=== PATIENT | male | born 1960 | race Caucasian/White ===

== ENCOUNTER 2016-07-02 00:22 | Emergency (ER) | payer BC ==
[2016-07-02 00:46] LABS: INFLUENZA A NEGATIVE (NEGATIVE); INFLUENZA B NEGATIVE (NEGATIVE)
[2016-07-02] MEDS ORDERED: 0.9 % SODIUM CHLORIDE 1,000 ML BAG IV ONE ×2 (00:58→02:24)
[2016-07-02] MEDS ORDERED: ONDANSETRON HCL IV 4 MG/2 ML VIAL IV ONE (00:58)
[2016-07-02 01:13] LABS: HEMATOCRIT 46.9 % (42.0-52.0); HEMOGLOBIN 16.7 gm/dl (14.0-18.0); MEAN CELL VOLUME 91.1 fl (81-97); MEAN CORPUSCULAR HEMOGLOBIN 32.4 pg (27-33); MEAN CORPUSCULAR HGB CONC 35.6 g/dl (32-36); MEAN PLATELET VOLUME 12.9 fl (7.4-10.4); PLATELET COUNT 100 K/uL (130-400); RED BLOOD COUNT 5.15 M/uL (4.40-5.70); RED CELL DISTRIBUTION WIDTH 13.3 % (11.5-14.5)
--- NOTE | 2016-07-02 01:19 | Emergency Department Record ---
History of Present Illness - General Chief complaint: Flu Like Symptoms Stated complaint: FLU LIKE SYMPTOMS Time Seen by Provider: 07/02/16 00:58 Source: Patient Mode of Arrival: Ambulatory Limitations: No limitations - History of Present Illness Initial comments: pt had a few bouts of vomiting earlier in the week and then has had multiple episodes a day for the last 3 days. pt feels like he is dehydrated. no other symptoms and no pain or fever Onset/Timin -: Days(s) Location: Generalized Severity scale (1-10): 6 Quality: Aching Consistency: Constant Improves with: None Worsens with: Exertion Associated Symptoms: Nausea/vomiting - Related Data Home Medications Medication Instructions Recorded Confirmed Last Taken Adalimumab [Humira] 1 mg SQ ASDIR 06/10/14 07/02/16 Unknown Alprazolam [Alprazolam] 0.5 mg PO BID 06/10/14 07/02/16 Unknown Atorvastatin Calcium [Lipitor] 1 tab PO DAILY 06/10/14 07/02/16 Unknown Celecoxib [Celebrex] 200 mg PO BID 06/10/14 07/02/16 Unknown Fenofibrate Nanocrystallized 135 mg PO DAILY 06/10/14 07/02/16 Unknown [Fenofibrate] Insulin Aspart [Novolog Flexpen] 1 unit SQ WMEALS PRN 06/10/14 07/02/16 07/02/16 Insulin Glargine,Hum.rec.anlog 46 unit SQ BID 06/10/14 07/02/16 07/02/16 [Lantus] Mirtazapine [Remeron] 15 mg PO QHS 06/10/14 07/02/16 Unknown Liraglutide [Victoza 3-Balaji] 1.2 mg SQ DAILY 07/02/16 07/02/16 Unknown Metoprolol Succinate [Toprol Xl] 25 mg PO DAILY 07/02/16 07/02/16 Unknown Previous Rx's Medication Instructions Recorded Ondansetron [Zofran Odt] 4 mg PO Q8H #10 tab.rapdis 07/02/16 Allergies Allergy/AdvReac Type Severity Reaction Status Date / Time No Known Drug Allergies Allergy Verified 06/11/14 00:58 Travel Screening - Travel/Exposure Within Last 30 Days Have you traveled within the last 30 days?: No - Travel Symptoms Symptom Screening: None Review of Systems Reviewed: No additional complaints except as noted below Constitutional: Reports: As per HPI. Denies: Chills, Fever, Malaise, Night sweats, Weakness, Weight change Eyes: Reports: As per HPI. Denies: Eye discharge, Eye pain, Photophobia, Vision change ENT: Reports: As per HPI. Denies: Congestion, Dental pain, Ear pain, Epistaxis , Hearing loss, Throat pain Respiratory: Reports: As per HPI. Denies: Cough, Dyspnea, Hemoptysis, Stridor, Wheezes Cardiovascular: Reports: As per HPI. Denies: Arrhythmia, Chest pain, Dyspnea on exertion, Edema, Murmurs, Orthopnea, Palpitations, Paroxysmal nocturnal dyspnea, Rheumatic Fever, Syncope Endocrine: Reports: As per HPI. Denies: Fatigue, Heat or cold intolerance, Polydipsia, Polyuria Gastrointestinal: Reports: As per HPI. Denies: Abdominal pain, Constipation, Diarrhea, Hematemesis, Hematochezia, Melena, Nausea, Vomiting Genitourinary: Reports: As per HPI. Denies: Dysuria, Frequency, Hematuria, Incontinence, Retention, Testicular pain, Testicular mass, Urgency Musculoskeletal: Reports: As per HPI. Denies: Arthralgia, Back pain, Gout, Joint swelling, Myalgia, Neck pain Skin: Reports: As per HPI. Denies: Bruising, Change in color, Change in hair/ nails, Lesions, Pruritus, Rash Neurological: Reports: As per HPI. Denies: Abnormal gait, Confusion, Headache, Numbness, Paresthesias, Seizure, Tingling, Tremors, Vertigo, Weakness Psychiatric: Reports: As per HPI. Denies: Anxiety, Auditory hallucinations, Depression, Homicidal thoughts, Suicidal thoughts, Visual hallucinations Hematological/Lymphatic: Reports: As per HPI. Denies: Anemia, Blood Clots, Easy bleeding, Easy bruising, Swollen glands Past Medical History - SOCIAL HISTORY Smoking Status: Current every day smoker - RESPIRATORY Hx Respiratory Disorders: Yes Hx Bronchitis: Yes Hx Pneumonia: Yes - CARDIOVASCULAR Hx Cardio Disorders: Yes Hx Abnormal EKG: Yes Hx Cardiac Cath: Yes Hx Chest Pain: Yes (occass. pt thinks its muskuloskelatal) Hx Heart Attack: Yes (2004) Hx Hypertension: Yes (on meds fair control goes up when in pain) Hx Coronary Artery Disease: Yes Hx Coronary Stent: Yes (2004) - NEURO Hx Neuro Disorders: Yes Hx Dizziness: Yes (hx vertigo x's 1) Hx Weakness: Yes (arms and legs) - GI Hx GI Disorders: Yes Hx Reflux: Yes - Hx Genitourinary Disorders: No - ENDOCRINE Hx Endocrine Disorders: Yes Hx Diabetes: Yes - MUSCULOSKELETAL Hx Musculoskeletal Disorders: Yes Hx Arthritis: Yes (ankylosing spondolytis) Hx Back Injury: Yes Hx Fibromyalgia: Yes - PSYCH Hx Psych Problems: Yes Hx Anxiety: Yes Comment:: OCD - HEMATOLOGY/ONCOLOGY Hx Hematology/Oncology Disorders: Yes Hx Blood Transfusions: Yes Family Medical History Any Significant Family History?: Yes Family Hx Comment (NOT TO BE USED IN PLACE OF ITEMS BELOW): RA, diabetes, heart problems, kidney stones. Physical Exam - General General Appearance: Alert, Oriented x3, Cooperative, Mild distress - Head Head exam: Normal inspection - Eye Eye exam: Normal appearance, PERRL, EOMI Pupils: Normal accommodation - ENT ENT exam: Normal exam, Mucous membranes dry, Normal external ear exam, Normal orophraynx Ear exam: Normal external inspection. negative: External canal tenderness Nasal Exam: Normal inspection. negative: Discharge, Sinus tenderness Mouth exam: Normal external inspection, Tongue normal Teeth exam: Normal inspection. negative: Dental caries Throat exam: Normal inspection. negative: Tonsillar erythema, Tonsillar exudate - Neck Neck exam: Normal inspection, Full ROM. negative: Tenderness - Respiratory Respiratory exam: Normal lung sounds bilaterally. negative: Respiratory distress - Cardiovascular Cardiovascular Exam: Normal rhythm, Normal heart sounds, Tachycardia - GI/Abdominal GI/Abdominal exam: Soft, Normal bowel sounds. negative: Tenderness - Rectal Rectal exam: Deferred - exam: Deferred - Extremities Extremities exam: Normal inspection, Full ROM, Normal capillary refill. negative: Tenderness - Back Back exam: Reports: Normal inspection, Full ROM. Denies: Muscle spasm, Rash noted, Tenderness - Neurological Neurological exam: Alert, CN II-XII intact, Normal gait, Oriented X3 - Psychiatric Psychiatric exam: Normal affect, Normal mood - Skin Skin exam: Dry, Intact, Normal color, Warm Course Vital Signs 07/02/16 00:32 Temperature 98.5 F Pulse Rate 128 H Respiratory 18 Rate Blood Pressure 102/84 Pulse Ox 96 - Reevaluation(s) Reevaluation #1: 07/02/16 03:31 pt feels much better Medical Decision Making - Lab Data Result diagrams: 07/02/16 01:07 07/02/16 01:07 Lab Results 07/02/16 07/02/16 Range/Units 00:28 01:07 WBC 8.0 (4.2-12.2) K/uL RBC 5.15 (4.40-5.70) M/uL Hgb 16.7 (14.0-18.0) gm/dl Hct 46.9 (42.0-52.0) % MCV 91.1 (81-97) fl MCH 32.4 (27-33) pg MCHC 35.6 (32-36) g/dl RDW 13.3 (11.5-14.5) % Plt Count 100 L (130-400) K/uL MPV 12.9 H (7.4-10.4) fl Eosinophils % Not Reportable Basophils % Not Reportable Influenza Type A Ag Negative (NEGATIVE) Influenza Type B Ag Negative (NEGATIVE) Disposition Disposition: Discharge Clinical Impression: Rotavirus enteritis, IDDM (insulin dependent diabetes mellitus) Disposition: Home, Self-Care Condition: (1) Good Instructions: Rotavirus Infection (ED) Additional Instructions: follow up with family doctor. return sooner if worse. push fluids. monitor glucose closely Prescriptions: Ondansetron [Zofran Odt] 4 mg PO Q8H #10 tab.rapdis Forms: Patient Portal Access
[2016-07-02 01:23] LABS: ANION GAP 8.6 (7-16); BLOOD UREA NITROGEN 15 mg/dL (9-20); CARBON DIOXIDE 21.4 mmol/L (22-30); EST GLOMERULAR FILTRATION RATE > 60 ml/min; GLUCOSE,RANDOM 268 mg/dL (70-110)
[2016-07-02 02:37] LABS: URINE APPEARANCE CLEAR; URINE BILIRUBIN NEGATIVE (NEGATIVE); URINE BLOOD TRACE-I (NEGATIVE); URINE COLOR YELLOW; URINE KETONE TRACE (NEGATIVE); URINE LEUKOCYTE ESTERASE NEGATIVE (NEGATIVE); URINE NITRITE NEGATIVE (NEGATIVE); URINE PROTEIN NEGATIVE (NEGATIVE); URINE UROBILINOGEN 0.2 E.U./dL (0.20 - 1.00)
[2016-07-02 02:49] LABS: URINE GLUCOSE (UA) >=1000 mg/dL (NEGATIVE)
[2016-07-02 02:50] LABS: URINE BACTERIA NONE SEEN; URINE EPITHELIAL CELLS 0 - 2 (FEW); URINE WBC 0 - 2 (0-2/hpf)
[2016-07-02 02:57] LABS: CRYPTOSPORIDIUM PARVUM ANTIGEN NOT DETECTED (NOT DETECT); GIARDIA LAMBLIA ANTIGEN NOT DETECTED (NOT DETECT)
[2016-07-02 02:58] LABS: ROTOVIRUS DETECTED
[2016-07-02 03:13] LABS: ACETONE,SERUM POSITIVE (NEGATIVE)
[2016-07-02] MEDS ORDERED: ONDANSETRON 4 MG ODT TABLET SL ONE (03:33)
== END 2016-07-02 03:47 | disposition home or self-care (01) ==
LOC: ER 00:22
DX: A08.0 Rotaviral enteritis (principal); E11.9 Type 2 diabetes mellitus without complications; Z79.4 Long term (current) use of insulin
CPT/HCPCS: 99284 ×2; 96374; 96361; 82800; 87329; 80048; 81001; 82009; 89055; 87425; 87427; 82272; 87400; 85027; J2405; J7030

== ENCOUNTER 2017-03-22 18:55 | Emergency (ER) | payer BC ==
--- NOTE | 2017-03-22 19:13 | Emergency Department Record ---
History of Present Illness - General Chief complaint: Weakness Stated complaint: TROUBLE WALKING,WEAKNESS,HIGH BLOOD SUGAR Time Seen by Provider: 03/22/17 19:08 Source: Patient Mode of Arrival: Wheelchair Limitations: No limitations - History of Present Illness Initial comments: 56 yo male presents to ED for evaluation of "all over body weakness" that began earlier today. Patient reports that he was fasting for a cortisone injection to the neck earlier today, blood sugar was 64 at that time however this afternoon, patient's glucose increased 300's with generalized weakness symptoms. Patient denies focal weakness on examination, denies fever, chills, or recent illness. Patient is concerned about possible dehydration. MD Complaint: Generalized weakness Onset/Timin -: Days(s) Location: Generalized Severity: Moderate Consistency: Constant Improves with: None Worsens with: None Context: New medication Associated Symptoms: Denies other symptoms - Eben Coma Scale Eye Response: (4) Open spontaneously Motor Response: (6) Obeys commands Verbal Response: (5) Oriented [place] Total: 15 - Related Data Previous Rx's Medication Instructions Recorded Ondansetron [Zofran Odt] 4 mg PO Q8H #10 tab.rapdis 07/02/16 Allergies Allergy/AdvReac Type Severity Reaction Status Date / Time No Known Drug Allergies Allergy Verified 06/11/14 00:58 Review of Systems Constitutional: Reports: Weakness ("all over"). Denies: Chills, Fever, Malaise , Night sweats Eyes: Denies: Eye discharge, Eye pain ENT: Denies: Congestion, Ear pain, Epistaxis Respiratory: Denies: Cough, Dyspnea Cardiovascular: Denies: Chest pain, Dyspnea on exertion Endocrine: Denies: Fatigue, Heat or cold intolerance Gastrointestinal: Reports: Abdominal pain ("for months"). Denies: Constipation , Nausea, Vomiting Genitourinary: Denies: Testicular pain, Testicular mass Musculoskeletal: Denies: Arthralgia, Back pain, Gout, Joint swelling Skin: Denies: Bruising, Change in color Neurological: Denies: Confusion, Headache, Numbness, Seizure, Tingling, Weakness Psychiatric: Denies: Anxiety Hematological/Lymphatic: Denies: Anemia, Blood Clots Past Medical History - SOCIAL HISTORY Smoking Status: Current every day smoker - RESPIRATORY Hx Respiratory Disorders: Yes Hx Bronchitis: Yes Hx Pneumonia: Yes - CARDIOVASCULAR Hx Cardio Disorders: Yes Hx Abnormal EKG: Yes Hx Cardiac Cath: Yes Hx Chest Pain: Yes (occass. pt thinks its muskuloskelatal) Hx Heart Attack: Yes (2004) Hx Hypertension: Yes (on meds fair control goes up when in pain) Hx Coronary Artery Disease: Yes Hx Coronary Stent: Yes (2004) - NEURO Hx Neuro Disorders: Yes Hx Dizziness: Yes (hx vertigo x's 1) Hx Weakness: Yes (arms and legs) - GI Hx GI Disorders: Yes Hx Reflux: Yes - Hx Genitourinary Disorders: No - ENDOCRINE Hx Endocrine Disorders: Yes Hx Diabetes: Yes - MUSCULOSKELETAL Hx Musculoskeletal Disorders: Yes Hx Arthritis: Yes (ankylosing spondolytis) Hx Back Injury: Yes Hx Fibromyalgia: Yes - PSYCH Hx Psych Problems: Yes Hx Anxiety: Yes Comment:: OCD - HEMATOLOGY/ONCOLOGY Hx Hematology/Oncology Disorders: Yes Hx Blood Transfusions: Yes Family Medical History Family Hx Comment (NOT TO BE USED IN PLACE OF ITEMS BELOW): RA, diabetes, heart problems, kidney stones. Physical Exam - General General Appearance: Alert, Oriented x3, Cooperative, Moderate distress Limitations: No limitations - Head Head exam: Atraumatic, Normocephalic, Normal inspection Head exam detail: negative: Abrasion, Contusion, Daugherty's sign, General tenderness, Hematoma, Laceration - Eye Eye exam: Normal appearance. negative: Conjunctival injection, Periorbital swelling, Periorbital tenderness, Scleral icterus - ENT Ear exam: negative: Auricular hematoma, Auricular trauma Nasal Exam: negative: Active bleeding, Discharge, Dried blood, Foreign body Mouth exam: negative: Drooling, Laceration, Muffled voice, Tongue elevation - Neck Neck exam: Normal inspection. negative: Meningismus, Tenderness - Respiratory Respiratory exam: Normal lung sounds bilaterally. negative: Rales, Respiratory distress, Rhonchi, Stridor - Cardiovascular Cardiovascular Exam: Regular rate, Normal rhythm, Normal heart sounds - GI/Abdominal GI/Abdominal exam: Soft. negative: Rebound, Rigid, Tenderness - Rectal Rectal exam: Deferred - exam: Deferred - Extremities Extremities exam: negative: Calf tenderness, Pedal edema, Tenderness - Back Back exam: Denies: CVA tenderness (R), CVA tenderness (L) - Neurological Neurological exam: Alert, Oriented X3, Other (Bilateral dorsiflexion/plantar flexion and psychological stress evaluator strength are 4+/5 in all extremities, no focal weakness on examination, no clinical evidence for acute CVA or spinal cord compression syndrome on examination.) - Psychiatric Psychiatric exam: Normal affect, Normal mood - Skin Skin exam: Normal color. negative: Abrasion Type of lesion: negative: abrasion Course - Reevaluation(s) Reevaluation #1: 03/22/17 19:21 EKG: NSR 97 LAD, Nonspecific ST-T changes III, AVF. Accu check 365 on examination. Reevaluation #2: 03/22/17 20:08 Labs reviewed, WBC 12.7 with 90% neutrophils (c/w cortisone injection earlier today), pH 7.47, Glucose is 383. No evidence for DKA. Patient updated on all results, Insulin 10 Units ordered IV as well. Reevaluation #3: 03/22/17 21:36 Repeat glucose 238, reports that he is feeling much better. Patient appears stable for discharge at this time. Medical Decision Making - Lab Data Result diagrams: 03/22/17 19:15 03/22/17 19:15 Disposition Disposition: Discharge Clinical Impression: Hyperglycemia, Generalized weakness Disposition: Home, Self-Care Condition: (2) Stable Instructions: Weakness (ED) Additional Instructions: Return to ED if your symptoms worsen or if you have any concerns. Follow-up with your family doctor in 3-5 days as directed. Drink plenty of fluids/rest. Forms: Patient Portal Access Time of Disposition: 21:37 Quality - Quality Measures Quality Measures: N/A - Blood Pressure Screening Does Patient Have Any of the Following: No Blood Pressure Classification: Pre-Hypertensive BP Reading Systolic Measurement: 133 Diastolic Measurement: 87 Screening for High Blood Pressure: < Pre-Hypertensive BP, F/U Documented > [ [id number]] Pre-Hypertensive Follow-up Interventions: Referral to alternative/primary care provider.
[2017-03-22] MEDS ORDERED: 0.9 % SODIUM CHLORIDE 1000ML 1,000 ML IV SCH (19:15)
[2017-03-22 19:23] LABS: BASO % 0.1 % (0-6); EOS % 1.8 % (0-6); HEMOGLOBIN 16.6 gm/dl (14.0-18.0); MEAN CORPUSCULAR HEMOGLOBIN 32.5 pg (27-33); MEAN CORPUSCULAR HGB CONC 35.3 g/dl (32-36); MEAN PLATELET VOLUME 12.4 fl (7.4-10.4); MONO % 0.6 % (0-9); PLATELET COUNT 169 K/uL (130-400); RED BLOOD COUNT 5.11 M/uL (4.40-5.70); RED CELL DISTRIBUTION WIDTH 12.9 % (11.5-14.5); WHITE BLOOD COUNT W/O DIFF 12.7 K/uL (4.2-12.2)
[2017-03-22 19:36] LABS: BLOOD UREA NITROGEN 17 mg/dL (6-20); EST GLOMERULAR FILTRATION RATE > 60 mL/min
[2017-03-22 19:37] LABS: TOTAL PROTEIN 7.8 g/dL (6.6-8.7)
[2017-03-22 19:39] LABS: GLUCOSE,RANDOM 383 mg/dL (74-109)
[2017-03-22 19:41] LABS: ALT/SGPT 25 U/L (<41)
[2017-03-22 19:42] LABS: ALB/GLOB RATIO 1.2 (1.1-1.8); ALBUMIN 4.3 g/dL (4.0-5.0); ALKALINE PHOSPHATASE 99 U/L (40-129); AST/SGOT 24 U/L (10.0-50.0)
[2017-03-22] MEDS ORDERED: HUMULIN R 100 UNIT/ML VIAL IV ONE (19:43)
[2017-03-22 19:44] LABS: ACETONE,SERUM NEGATIVE (NEGATIVE)
[2017-03-22 19:57] LABS: URINE APPEARANCE CLEAR; URINE BILIRUBIN NEGATIVE (NEGATIVE); URINE BLOOD NEGATIVE (NEGATIVE); URINE COLOR YELLOW; URINE GLUCOSE (UA) >=1000 mg/dL (NEGATIVE); URINE KETONE NEGATIVE (NEGATIVE); URINE LEUKOCYTE ESTERASE NEGATIVE (NEGATIVE); URINE NITRITE NEGATIVE (NEGATIVE); URINE PROTEIN NEGATIVE (NEGATIVE); URINE UROBILINOGEN 0.2 E.U./dL (0.20 - 1.00)
== END 2017-03-22 21:50 | disposition home or self-care (01) ==
LOC: ER 18:55
DX: E11.65 Type 2 diabetes mellitus with hyperglycemia (principal); I10 Essential (primary) hypertension; R53.1 Weakness; I25.2 Old myocardial infarction; F17.210 Nicotine dependence, cigarettes, uncomplicated; Z79.4 Long term (current) use of insulin
CPT/HCPCS: 36416; 80053; 81003; 82009; 82800; 82948; 83605; 85027; 93005; 93010; 96361; 96374; 99284; J7030